=== PATIENT | male | born 1980 | race African-American/Black ===

== ENCOUNTER 2018-09-12 09:44 | Emergency (ER) | payer OTHER ==
[~2018-09-12] VITALS: Ht 175.3 cm; Wt 79.4 kg
[2018-09-12] MEDS ORDERED: ADVIL200 M3 PO (10:09)
[2018-09-12] MEDS ORDERED: PENICILLIN V P500 MG PO (10:46)
[2018-09-12] MEDS ORDERED: ULTRAM 50MG TAB50 MG PO (10:46)
[2018-09-12] MEDS ORDERED: CEPACOL SORE T1 EAC8 PO (10:46)
[2018-09-12 11:03] VITALS: BP 125/66
== END 2018-09-12 11:03 | disposition home or self-care (01) ==
LOC: ER 09:44
DX: J02.9 Acute pharyngitis, unspecified (principal)